=== PATIENT | female | born 1980 | race Two or more races ===

== ENCOUNTER 2017-06-06 22:29 | Emergency (ER) | payer OTHER ==
[~2017-06-06] VITALS: Ht 153 cm; Wt 74.8 kg
[~2017-06-06 22:29] MED LIST: BENADRYL25 MG PO; HYDROCODON-ACE1 EA13 ORAL; IBUPROFEN600 MG ORAL; KEFLEX500 MG ORAL; MACROBID 100 M100 MG PO; MACROBID100 MG ORAL; NORCO 5-325 TA1 EACH ORAL; PHENAZOPYRIDIN200 MG ORAL; PREDNISONE20 MG PO; UNOBMED; VALIUM5 MG ORAL
[2017-06-06] MEDS ORDERED: METFORMIN HCL500 M1 ORAL (22:39)
[2017-06-06 22:58] VITALS: BP 146/93
[2017-06-06] MEDS ORDERED: LORazepam Inj 2mg/ml 1ml IV ONE (23:00)
[2017-06-06 23:32] LABS: BILIRUBIN, URINE NEGATIVE (NEGATIVE); COLOR,URINE PALE YELLOW; EOSINOPHILS % (AUTO) 5.3 % (0.0-3.0); GLUCOSE, URINE (UA) NEGATIVE (NEGATIVE); KETONES,URINE NEGATIVE (NEGATIVE); LYMPHOCYTES % (AUTO) 37.2 % (20.0-45.0); MEAN CORPUSCULAR VOLUME 80 FL (80-99); MONOCYTES % (AUTO) 6.5 % (1.0-10.0); NITRITE,URINE NEGATIVE (NEGATIVE); PH,URINE 7 (4.5-8.0); PLATELET COUNT 327 K/UL (150-450); PROTEIN,URINE NEGATIVE (NEGATIVE); RED BLOOD COUNT 4.35 M/UL (4.20-5.40); RED CELL DISTRIBUTION WIDTH 13.3 % (11.6-14.8); UROBILINOGEN,URINE NORMAL MG/DL (0.0-1.0); WHITE BLOOD COUNT 9.3 K/UL (4.8-10.8)
[2017-06-06 23:43] LABS: ANION GAP 10 mmol/L (5-15); BLOOD UREA NITROGEN 10 mg/dL (7-18); CALCIUM 8.5 MG/DL (8.5-10.1); CARBON DIOXIDE 26 MMOL/L (21-32); CHLORIDE 104 MMOL/L (98-107); CREATININE 0.7 MG/DL (0.55-1.30); POTASSIUM 3.3 MMOL/L (3.5-5.1); SODIUM 139 MMOL/L (136-145)
[2017-06-06 23:48] LABS: ALANINE AMINOTRANSFERASE 29 U/L (12-78); ALBUMIN 3.4 G/DL (3.4-5.0); ALBUMIN/GLOBULIN RATIO 0.9 (1.0-2.7); ALKALINE PHOSPHATASE 154 U/L (46-116); APPEARANCE,URINE SLIGHTLY CLOUDY; ASPARTATE AMINO TRANSFERASE 18 U/L (15-37); BILIRUBIN,TOTAL 0.2 MG/DL (0.2-1.0); LEUKOCYTE ESTERASE ,URINE 1+ (NEGATIVE)
--- NOTE | 2017-06-07 00:18 | Emergency Room Report ---
History of Present Illness General Chief Complaint: Chest Pain Source: Patient Present Illness HPI Is a 36-year-old female with his anxiety. She woke up with chief complaint of chest pain. She fell heaviness to her left chest area. Now with numbness to her body mostly on her fingers and feet. No nausea no vomiting. No suicidal thought homicidal thought. No radiation. No dyspnea or palpitation. No other complaint. No exertional component. Allergies: Coded Allergies: No Known Allergies (Unverified , 02/25/12) Patient History Past Medical History: see triage record, old chart reviewed, psych hx - anxiety Past Surgical History: none Pertinent Family History: none Social History: Denies: smoking Last Menstrual Period: 05/02/2016 Now: No : 4 Para: 3 Immunizations: other Reviewed Nursing Documentation: PMH: Agreed; PSxH: Agreed Nursing Documentation-PMH Past Medical History: No History, Except For Hx Cardiac Problems: No Hx Hypertension: Yes Hx Pacemaker: No Hx Asthma: No Hx COPD: No Hx Diabetes: Yes - pre-diabetic Hx Cancer: No Hx Gastrointestinal Problems: No Hx Dialysis: No Hx Neurological Problems: No Hx Cerebrovascular Accident: No Hx Seizures: No Review of Systems Eye: Denies: eye pain, blurred vision ENT: Denies: ear pain, nose congestion, throat swelling Respiratory: Denies: cough, shortness of breath Cardiovascular: Reports: chest pain; Denies: palpitations Gastrointestinal: Denies: abdominal pain, diarrhea, nausea, vomiting Musculoskeletal: Denies: back pain, joint pain Skin: Denies: rash Neurological: Denies: headache, numbness Endocrine: Denies: increased thirst, increased urine Hematologic/Lymphatic: Denies: easy bruising All Other Systems: negative except mentioned in HPI Physical Exam Vital Signs Date Time Temp Pulse Resp B/P (MAP) Pulse Ox O2 Delivery O2 Flow Rate FiO2 06/06/17 22:32 98.0 83 12 183/100 97 Room Air 98.1 vitals normal except for high blood pressure Sp02 EP Interpretation: reviewed, normal General Appearance: well appearing, no apparent distress, alert Head: normocephalic, atraumatic Eyes: bilateral eye PERRL, bilateral eye EOMI ENT: hearing grossly normal, normal pharynx Neck: full range of motion, supple, no meningismus Respiratory: chest non-tender, lungs clear, normal breath sounds Cardiovascular #1: regular rate, rhythm, no murmur Gastrointestinal: normal bowel sounds, non tender, no mass, no organomegaly, no bruit, non-distended Musculoskeletal: back normal, gait/station normal, normal range of motion Neurologic: alert, oriented x3 Psychiatric: anxious Skin: warm/dry Medical Decision Making Diagnostic Impression: Primary Impression: Chest pain Qualified Codes: R07.9 - Chest pain, unspecified Additional Impression: Acute anxiety ER Course Pt presents with atypical chest pain, most likely anxiety related. She felt much better after Ativan. Blood pressures normal. No evidence of ACS, PE, dissection to name a few. We'll discharge home. Lab Results Impression labs normal EKG Diagnostic Results Rate: normal Rhythm: NSR ST Segments: no acute changes Rhythm Strip Diag. Results Rhythm Strip Time: 00:18 EP Interpretation: yes Rate: 66 Rhythm: NSR, no PVC's, no ectopy Last Vital Signs Date Time Temp Pulse Resp B/P (MAP) Pulse Ox O2 Delivery O2 Flow Rate FiO2 06/06/17 22:59 82 19 Room Air 06/06/17 22:58 98.1 146/93 99 98.1 Status: improved Disposition: HOME, SELF-CARE Condition: Stable Referrals: [facility],REFERRING (PCP) Patient Instructions: Nonspecific Chest Pain Additional Instructions: Follow-up with your DrShilpi in 7 days. Return if symptom worsen. MAGGIE WORTHINGTON M.D. Jun 07, 2017 00:18
[2017-06-07 00:35] VITALS: BP 146/93
--- NOTE | 2017-06-07 12:43 | Diagnostic Imaging Report ---
Indication: Reason For Exam: CP Technique: One view of the chest Comparison: none Findings: Lungs and pleural spaces are clear. Heart size is normal Impression: No acute process
--- NOTE | 2017-06-07 16:23 | Cardiology Report ---
APPROVED REPORT EKG Measurement Heart [id number] Normal sinus rhythm Normal ECG
== END 2017-06-07 00:35 | disposition home or self-care (01) ==
LOC: EMR 22:59
DX: R07.9 Chest pain, unspecified (principal); I10 Essential (primary) hypertension; F41.9 Anxiety disorder, unspecified
CPT/HCPCS: 36415; 71045; 80053; 81003; 82962; 84484; 85025; 93005; 96374; 99284

== ENCOUNTER 2017-10-20 12:41 | Emergency (ER) | payer OTHER ==
[~2017-10-20] VITALS: Ht 157.5 cm; Wt 66.7 kg
[~2017-10-20 12:41] MED LIST changes: +METFORMIN HCL500 M1 ORAL
[2017-10-20 13:35] VITALS: BP 147/98
[2017-10-20] MEDS ORDERED: TYLENOL EXTRA500 MG ORAL (13:53)
--- NOTE | 2017-10-20 13:54 | Emergency Room Report ---
History of Present Illness General Chief Complaint: Pain Source: Patient Present Illness HPI 37-year-old female patient presents ER complaining of bump on right side of neck. reports painful to touch, pain with movement of neck. Denies No job, states that she's been able to eat during this time. Denies tooth pain, no sore throat, states that she saw dentist last week. denies recent injury or illness. denies fever, chest pain, SOB, ear pain. states she is Not on blood thinners, denies hx of stroke or TIA. Allergies: Coded Allergies: No Known Allergies (Unverified , 02/25/12) Patient History Past Medical History: see triage record Last Menstrual Period: 09/10/2017 Now: No Reviewed Nursing Documentation: PMH: Agreed; PSxH: Agreed Nursing Documentation-PMH Hx Cardiac Problems: No Hx Hypertension: Yes Hx Pacemaker: No Hx Asthma: No Hx COPD: No Hx Diabetes: Yes Hx Cancer: No Hx Gastrointestinal Problems: No Hx Dialysis: No Hx Neurological Problems: No Hx Cerebrovascular Accident: No Hx Seizures: No Review of Systems All Other Systems: negative except mentioned in HPI Physical Exam Vital Signs Date Time Temp Pulse Resp B/P (MAP) Pulse Ox O2 Delivery O2 Flow Rate FiO2 10/20/17 13:08 98.4 78 14 159/106 97 Room Air 98.4 Sp02 EP Interpretation: reviewed, normal General Appearance: well appearing, no apparent distress, alert, GCS 15, non- toxic Head: normocephalic, atraumatic Eyes: bilateral eye normal inspection, bilateral eye PERRL ENT: hearing grossly normal, normal pharynx, no angioedema, normal voice, TMs + canals normal, uvula midline, moist mucus membranes, other - multiple fillings noted, no tenderness to palpation, teeth, no erythema or edema, no abscess and oral cavity Neck: full range of motion, no meningismus, no bony tend Respiratory: lungs clear, normal breath sounds, no rhonchi, no respiratory distress, no accessory muscle use, no wheezing, speaking full sentences Cardiovascular #1: regular rate, rhythm, no edema Neurologic: alert, oriented x3, responsive, rrt III-XII nml as tested, motor strength/tone normal, sensory intact, cerebellar normal, normal gait, speech normal Psychiatric: mood/affect normal Skin: no rash Lymphatic: adenopathy - right cervical Medical Decision Making PA Attestation Dr. Nolasco is my supervising Physician whom patient management has been discussed with. Diagnostic Impression: Primary Impression: Swelling of lymph node ER Course Pt. presents to the ED c/o "bump" on right side of her neck causing pain. Ddx considered but are not limited to lymphadenopathy, URI, pharyngitis, tonsillitis, otitis media, otitis externa, malignancy, cysts, cellulitis, abscess. Vital signs: are WNL, pt. is afebrile, blood pressure mildly elevated. patient denies chest pain, shortness of breath, headache. Blood pressure mildly elevated at this time, will continue to monitor. Denies chest pain, shortness of breath, vision changes, does not require acute intervention at ER at this time. Follow with primary care provider discuss further treatment and referral. Advised on low-sodium diet, advised on diet and exercise. ER COURSE: patient was seen by dentist last week, no infection at that time, did not require treatment with antibiotics at that time. Physical exam Shows swollen right sided cervical lymph node, tender to palpation , no erythema or edema, low suspicion for abscess. due to tenderness, low suspicion for malignancy at this time, informed patient to follow-up with primary care if lymph node persists longer than 2 weeks may require biopsy and treatment, does not require antibiotic treatment at this time.. Informed patient that it was not painful, greater concern for malignancy. No pharyngeal erythema or edema, no tonsillar exudates, bilateral TMs normal, patient is afebrile, chest clear to auscultation. No uvular deviation, no stridor, no drooling or hot potato voice, low suspicion for peritonsillar abscess. patient seen and evaluated by Dr. Nolasco, increased assessment and treatment plan. instructed patient to take Tylenol for pain symptoms. DISCHARGE: Rx provided for Tylenol At this time pt is stable for d/c to home. Patient is resting comfortably, in no acute distress, nontoxic appearing, talking without difficulty. Patient to take medications as instructed Will provide with patient care instructions and any necessary prescriptions. Care plan and follow-up instructions provided. Patient instructed to follow-up with primary care provider in 3 - 5 days. Patient questions asked and answered. Patient reports understanding and agreement to treatment plan. ER precautions given. Patient instructed to return to ER immediately for any new or worsening of symptoms including but not limited to increasing SOB, persistent fever, chest pain, intractable vomiting. - Please note that this Emergency Department Report was dictated using [employer] technology software, occasionally this can lead to erroneous entry secondary to interpretation by the dictation equipment. Last Vital Signs Date Time Temp Pulse Resp B/P (MAP) Pulse Ox O2 Delivery O2 Flow Rate FiO2 10/20/17 13:08 98.4 78 14 159/106 97 Room Air 98.4 Disposition: HOME, SELF-CARE Condition: Stable Scripts Acetaminophen* (TYLENOL EXTRA STRENGTH*) 500 Mg Tablet 500 MG ORAL Q8H PRN for Prn Headache/Temp > 101, #30 TAB 0 Refills Prov: Eduardo Abbott 10/20/17 Patient Instructions: Lymphadenopathy Additional Instructions: Followup with primary care provider in 3 -5 days. Take medications as directed. Take Tylenol for pain. Apply ice to help with swelling symptoms. Patient questions asked and answered. ER precautions given, patient instructed to return to ER immediately for any new or worsening of symptoms. Eduardo Abbott Oct 20, 2017 13:54
[2017-10-20 14:20] VITALS: BP 147/98
== END 2017-10-20 14:20 | disposition home or self-care (01) ==
LOC: EMR 13:42
DX: R59.0 Localized enlarged lymph nodes (principal); I10 Essential (primary) hypertension; E11.9 Type 2 diabetes mellitus without complications
CPT/HCPCS: 99283

== ENCOUNTER 2018-03-20 16:20 | Emergency (ER) | payer SELFPAY ==
[~2018-03-20] VITALS: Ht 154.9 cm; Wt 72.6 kg
[~2018-03-20 16:20] MED LIST changes: +TYLENOL EXTRA500 MG ORAL
--- NOTE | 2018-03-20 16:39 | NUR ---
ED Nurse Note: Pt came into the Er w/ complaints of abdominal pain x 2 days. Rating the pain an 8/10. Non radiating. Denies diarrhea or nausea. Pt states that she has had 2 episodes of clear vomit. A + O x4. Ambulatory. Skin warm to touch.
[2018-03-20 16:41] VITALS: BP 164/104
--- NOTE | 2018-03-20 16:46 | Emergency Room Report ---
History of Present Illness General Chief Complaint: Abdominal Pain Source: Patient, Medical Record Present Illness HPI This is a very pleasant 37-year-old female complains of severe epigastric abdominal pain that radiates to the right upper quadrant. She also complains of vomiting as well. It started about 2 days ago gradual onset and got progressively worse. Constant pain. She describes it as dull pain. No exacerbating or alleviating factor. Allergies: Coded Allergies: No Known Allergies (Unverified , 02/25/12) Patient History Past Surgical History: none Pertinent Family History: none, other - sister has gallbladder disease Last Menstrual Period: 02/01/18 Nursing Documentation-[facility] Past Medical History: No History, Except For Hx Cardiac Problems: No Hx Hypertension: Yes Hx Pacemaker: No Hx Asthma: No Hx COPD: No Hx Diabetes: Yes - hx of kidney stone Hx Cancer: No Hx Gastrointestinal Problems: No Hx Dialysis: No Hx Neurological Problems: No Hx Cerebrovascular Accident: No Hx Seizures: No Review of Systems All Other Systems: negative except mentioned in HPI Physical Exam Vital Signs Date Time Temp Pulse Resp B/P (MAP) Pulse Ox O2 Delivery O2 Flow Rate FiO2 03/20/18 16:27 98.8 93 16 169/90 97 Room Air 03/20/18 16:41 100 General Appearance: well appearing, no apparent distress Head: normocephalic, atraumatic ENT: hearing grossly normal, normal voice Respiratory: normal breath sounds, no respiratory distress, speaking full sentences Gastrointestinal: normal inspection, soft, no peritonitis, other - ru Musculoskeletal: normal inspection Neurologic: normal inspection, alert, oriented x3, responsive Skin: no rash Medical Decision Making Reaction to Intervention: Improved Diagnostic Impression: Primary Impression: Abdominal pain ER Course Patient presents significant complexity of risk requiring multiple bedside evaluations. Patient is nontoxic-appearing. The patient was given IV morphine for pain. I also considered cholangitis, pancreatitis, ectopic , kidney stone, abdominal aortic aneurysm, atypical acute coronary syndrome. The patient has no chest pain. The patient is alert. Laboratory Tests Test 03/20/18 16:38 03/20/18 16:50 Urine Color Pale yellow Urine Appearance Clear Urine pH 6.5 (4.5-8.0) Urine Specific Moody 1.010 (1.005-1.035) Urine Protein Negative (NEGATIVE) Urine Glucose (UA) Negative (NEGATIVE) Urine Ketones 1+ (NEGATIVE) H Urine Blood Negative (NEGATIVE) Urine Nitrite Negative (NEGATIVE) Urine Bilirubin Negative (NEGATIVE) Urine Urobilinogen Normal MG/DL (0.0-1.0) Urine Leukocyte Esterase 1+ (NEGATIVE) H Urine RBC 0-2 /HPF (0 - 2) Urine WBC 2-4 /HPF (0 - 2) Urine Squamous Epithelial Cells Few /LPF (NONE/OCC) Urine Bacteria Few /HPF (NONE) White Blood Count 10.2 K/UL (4.8-10.8) Red Blood Count 4.54 M/UL (4.20-5.40) Hemoglobin 12.3 G/DL (12.0-16.0) Hematocrit 37.1 % (37.0-47.0) Mean Corpuscular Volume 82 FL (80-99) Mean Corpuscular Hemoglobin 27.0 PG (27.0-31.0) Mean Corpuscular Hemoglobin Concent 33.1 G/DL (32.0-36.0) Red Cell Distribution Width 13.8 % (11.6-14.8) Platelet Count 273 K/UL (150-450) Mean Platelet Volume 8.3 FL (6.5-10.1) Neutrophils (%) (Auto) 63.0 % (45.0-75.0) Lymphocytes (%) (Auto) 27.3 % (20.0-45.0) Monocytes (%) (Auto) 5.4 % (1.0-10.0) Eosinophils (%) (Auto) 3.4 % (0.0-3.0) H Basophils (%) (Auto) 1.0 % (0.0-2.0) Sodium Level 140 MMOL/L (136-145) Potassium Level 3.2 MMOL/L (3.5-5.1) L Chloride Level 103 MMOL/L (98-107) Carbon Dioxide Level 27 MMOL/L (21-32) Anion Gap 10 mmol/L (5-15) Blood Urea Nitrogen 3 mg/dL (7-18) L Creatinine 0.7 MG/DL (0.55-1.30) Estimate Glomerular Filtration Rate > 60 mL/min (>60) Glucose Level 145 MG/DL (74-106) H Calcium Level 9.4 MG/DL (8.5-10.1) Total Bilirubin 0.4 MG/DL (0.2-1.0) Aspartate Amino Transferase (AST) 16 U/L (15-37) Alanine Aminotransferase (ALT) 27 U/L (12-78) Alkaline Phosphatase 110 U/L (46-116) Total Protein 7.3 G/DL (6.4-8.2) Albumin 3.8 G/DL (3.4-5.0) Globulin 3.5 g/dL Albumin/Globulin Ratio 1.1 (1.0-2.7) Lipase 101 U/L (73-393) Human Chorionic Gonadotropin, Quant < 1 mIU/mL (1-6) L Last Vital Signs Date Time Temp Pulse Resp B/P (MAP) Pulse Ox O2 Delivery O2 Flow Rate FiO2 03/20/18 16:41 83 19 Room Air 100 03/20/18 16:27 98.8 169/90 97 Status: improved Disposition: HOME, SELF-CARE Condition: Improved Scripts Omeprazole (OMEPRAZOLE) 40 Mg Capsule.dr 40 MG ORAL DAILY for 10 Days, #10 CAP Prov: JACOB ALEJANDRO 03/20/18 Ondansetron (Zofran) 4 Mg Tablet 4 MG ORAL Q6H PRN for Nausea & Vomiting for 7 Days, #10 TAB 0 Refills Prov: JACOB ALEJANDRO 03/20/18 Tramadol HCl (Tramadol HCl ER) 150 Mg Cpbp.25.75 50 MG ORAL QID PRN for For Pain for 7 Days, #20 CAP Prov: JACOB ALEJANDRO 03/20/18 Patient Instructions: Abdominal Pain, Adult JACOB ALEJANDRO Mar 20, 2018 16:46
--- NOTE | 2018-03-20 16:59 | NUR ---
ED Nurse Note: Blood and urine has been collected and sent to lab. Awaiting results.
[2018-03-20] MEDS ORDERED: Morphine Sulfate 4mg/ml Inj (IV USE ONLY) IVP ONE (17:00)
--- NOTE | 2018-03-20 17:02 | NUR ---
ED Nurse Note: Tried calling US to notify about the US orders. No answer. Will try again later.
[2018-03-20 17:29] LABS: ANION GAP 10 mmol/L (5-15); BLOOD UREA NITROGEN 3 mg/dL (7-18); CALCIUM 9.4 MG/DL (8.5-10.1); CARBON DIOXIDE 27 MMOL/L (21-32); CHLORIDE 103 MMOL/L (98-107); CREATININE 0.7 MG/DL (0.55-1.30); EOSINOPHILS % (AUTO) 3.4 % (0.0-3.0); HEMATOCRIT 37.1 % (37.0-47.0); HEMOGLOBIN 12.3 G/DL (12.0-16.0); LYMPHOCYTES % (AUTO) 27.3 % (20.0-45.0); MEAN CORPUSCULAR VOLUME 82 FL (80-99); MONOCYTES % (AUTO) 5.4 % (1.0-10.0); PLATELET COUNT 273 K/UL (150-450); POTASSIUM 3.2 MMOL/L (3.5-5.1); RED BLOOD COUNT 4.54 M/UL (4.20-5.40); RED CELL DISTRIBUTION WIDTH 13.8 % (11.6-14.8); SODIUM 140 MMOL/L (136-145); WHITE BLOOD COUNT 10.2 K/UL (4.8-10.8)
[2018-03-20 17:29] LABS: APPEARANCE,URINE CLEAR; BILIRUBIN, URINE NEGATIVE (NEGATIVE); COLOR,URINE PALE YELLOW; GLUCOSE, URINE (UA) NEGATIVE (NEGATIVE); KETONES,URINE 1+ (NEGATIVE); LEUKOCYTE ESTERASE ,URINE 1+ (NEGATIVE); NITRITE,URINE NEGATIVE (NEGATIVE); PH,URINE 6.5 (4.5-8.0); PROTEIN,URINE NEGATIVE (NEGATIVE); UROBILINOGEN,URINE NORMAL MG/DL (0.0-1.0)
[2018-03-20 17:34] LABS: ALANINE AMINOTRANSFERASE 27 U/L (12-78); ALBUMIN 3.8 G/DL (3.4-5.0); ALBUMIN/GLOBULIN RATIO 1.1 (1.0-2.7); ALKALINE PHOSPHATASE 110 U/L (46-116); ASPARTATE AMINO TRANSFERASE 16 U/L (15-37); BILIRUBIN,TOTAL 0.4 MG/DL (0.2-1.0)
--- NOTE | 2018-03-20 17:48 | NUR ---
ED Nurse Note: US at the bedside.
[2018-03-20] MEDS ORDERED: TRAMADOL HCL150 MG ORAL (18:40)
[2018-03-20] MEDS ORDERED: OMEPRAZOLE40 M1 ORAL (18:40)
[2018-03-20] MEDS ORDERED: ZOFRAN4 MG ORAL (18:40)
[2018-03-20 18:54] VITALS: BP 158/95
--- NOTE | 2018-03-20 18:55 | NUR ---
ED Nurse Note: Discharge instructions given to pt. Answered all questions. Verbalized understanding. No acute distress noted. ID band and IV site removed. Left ER w/ steady gait and all belongings.
--- NOTE | 2018-03-21 10:25 | Diagnostic Imaging Report ---
Indication: Abdominal pain Technique: Roper-scale and duplex images of the upper abdomen were obtained Comparison: None. Reference made to abdomen pelvis CT dated 10/31/2015 Findings: Gallbladder is unremarkable, without stones, wall thickening, nor pericholecystic fluid. Sonographic Wang's sign is negative. Common bile duct measures 2 mm in diameter. No intrahepatic biliary ductal dilatation. Liver demonstrates diffusely increased echogenicity, consistent with diffuse hepatocellular disease, most likely fatty change. Portal vein and hepatic veins are patent. Pancreas is unremarkable. Spleen is unremarkable. Left kidney measures 12.9 cm in length. Right kidney measures 11.5 cm length. Both kidneys demonstrate normal echogenicity. There is no hydronephrosis. No focal abnormality . Unremarkable inferior vena cava. Non-aneurysmal abdominal aorta . Impression: Negative for gallstones or dilated ducts Liver demonstrates diffusely increased echogenicity, consistent with diffuse hepatocellular disease, most likely fatty change. This agrees with the preliminary interpretation provided by the emergency room physician
== END 2018-03-20 19:00 | disposition home or self-care (01) ==
LOC: EMR 17:27
DX: R10.13 Epigastric pain (principal); I10 Essential (primary) hypertension; Z87.442 Personal history of urinary calculi
CPT/HCPCS: 36415; 76700; 80053; 81003; 83690; 84702; 85025; 96361; 96374; 96375; 99284; J2270; J2405

== ENCOUNTER 2018-07-15 08:57 | Emergency (ER) | payer SELFPAY ==
[~2018-07-15] VITALS: Ht 154.9 cm; Wt 72.6 kg
[~2018-07-15 08:57] MED LIST changes: +OMEPRAZOLE40 M1 ORAL; +TRAMADOL HCL150 MG ORAL; +ZOFRAN4 MG ORAL
[2018-07-15] MEDS ORDERED: METOPROLOL TART25 MG ORAL (09:04)
--- NOTE | 2018-07-15 09:19 | NUR ---
ED Nurse Note: Patient walked in to ER c/o chest pain 09/06. pt aao x4 and ambulatory. calm and cooperative. skin clean and intact. However, palm sized bruises noted on both inner thigh which pt denied any injury or trauma. per pt, she has been getting bruises all over her body without bumping in to anywhere. pt denied taking blood thinner including Aspirin. ERMD notified about bruises too.
[2018-07-15 09:20] VITALS: BP 169/103
--- NOTE | 2018-07-15 09:21 | Emergency Room Report ---
History of Present Illness General Chief Complaint: Abdominal Pain Source: Patient Present Illness HPI Patient presents with 2 weeks of epigastric pain. It's intermittent. She's tried taking Tylenol but this hasn't helped. The pain is rated 8/10. She reports more pressure. She had some loose stools initially that she characterizes diarrhea. They were light brown in color. Is no blood. She's vomited but feels nauseated. The patient has frequent bloating with gassiness. This feels different. She also complains about bruising. She denies any trauma to her legs. There were more painful initially. They're on the inner thighs and also on her arms. The patient is also diabetic on metformin. Her sugars have been high. 2 days ago it was 214. She feels dehydrated but doesn't complain of polyuria polydipsia. The patient is also hypertensive. She's taking medication at this time. She denies headache. Her last period was normal for her on July 02. She denies dysuria. The patient also has a history of anxiety and is treated with lorazepam. History of renal stone in the past. 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 Reviewed Nursing Documentation: PMH: Agreed; PSxH: Agreed Nursing Documentation-PMH Hx Cardiac Problems: No Hx Hypertension: Yes Hx Pacemaker: No Hx Asthma: No Hx COPD: No Hx Diabetes: Yes - hx of kidney stone Hx Cancer: No Hx Gastrointestinal Problems: No Hx Dialysis: No Hx Neurological Problems: No Hx Cerebrovascular Accident: No Hx Seizures: No Review of Systems All Other Systems: negative except mentioned in HPI Physical Exam Vital Signs Date Time Temp Pulse Resp B/P (MAP) Pulse Ox O2 Delivery O2 Flow Rate FiO2 07/15/18 09:00 98.1 90 22 99 Room Air Sp02 EP Interpretation: reviewed, normal General Appearance: well appearing, no apparent distress, GCS 15 Head: normocephalic, atraumatic Eyes: bilateral eye normal inspection, bilateral eye PERRL ENT: moist mucus membranes Neck: supple Respiratory: lungs clear, normal breath sounds Cardiovascular #1: regular rate, rhythm Cardiovascular #2: 2+ radial (R) Gastrointestinal: normal inspection, normal bowel sounds, no mass, non- distended, no guarding, no rebound, tenderness - Epigastric Genitourinary: no CVA tenderness Musculoskeletal: back normal, gait/station normal, normal range of motion Neurologic: alert, oriented x3, grossly normal Psychiatric: mood/affect normal Skin: warm/dry, other - Violaceous macules inner thighs and also left inner arm slightly raised. In addition there are petechial bowen where the blood pressure cuff was. Medical Decision Making Diagnostic Impression: Primary Impression: Epigastric abdominal pain Additional Impressions: Diabetes Qualified Codes: E11.9 - Type 2 diabetes mellitus without complications Rash and nonspecific skin eruption ER Course Patient presents with epigastric pain and a rash with history of diabetes and hypertension. Differential includes gastritis, peptic ulcer disease, pancreatitis, gallbladder disease amongst others. Regarding the rash this appears slightly purpuric however she also has petechiae -vasculitis, palpable purpura, renal failure need to be excluded. The lesions do not appear infected. The exam is more consistent with gastritis and gallbladder disease. The patient will be evaluated with x-rays and labs including sedimentation rate. The patient will receive IV hydration and repeat blood sugars will be obtained. The patient will be treated with Pepcid and Mylanta and lidocaine. Increased pain. Morphine ordered. WBC normal. Glucose good. Potassium low. Films unremarkable. Because of pain, ultrasound ordered and morphine repeated. Potassium given orally. Ultrasound with fatty liver. Discussed findings with patient. Pain is improved. Feels pain only when she presses on her epigastric area. Discussed outpatient observation with patient. She is advised to return if the pain increases, vomiting or fevers. Patient stable for outpatient observation and treatment. Laboratory Tests Test 07/15/18 09:38 07/15/18 10:05 White Blood Count 8.5 K/UL (4.8-10.8) Red Blood Count 4.68 M/UL (4.20-5.40) Hemoglobin 11.8 G/DL (12.0-16.0) L Hematocrit 37.1 % (37.0-47.0) Mean Corpuscular Volume 79 FL (80-99) L Mean Corpuscular Hemoglobin 25.2 PG (27.0-31.0) L Mean Corpuscular Hemoglobin Concent 31.8 G/DL (32.0-36.0) L Red Cell Distribution Width 15.1 % (11.6-14.8) H Platelet Count 354 K/UL (150-450) Mean Platelet Volume 7.6 FL (6.5-10.1) Neutrophils (%) (Auto) 56.1 % (45.0-75.0) Lymphocytes (%) (Auto) 35.2 % (20.0-45.0) Monocytes (%) (Auto) 5.2 % (1.0-10.0) Eosinophils (%) (Auto) 2.5 % (0.0-3.0) Basophils (%) (Auto) 1.0 % (0.0-2.0) Prothrombin Time 10.5 SEC (9.30-11.50) Prothrombin Time INR 1.0 (0.9-1.1) PTT 26 SEC (23-33) Urine Color Pale yellow Urine Appearance Slightly cloudy Urine pH 6.5 (4.5-8.0) Urine Specific [place] 1.015 (1.005-1.035) Urine Protein Negative (NEGATIVE) Urine Glucose (UA) Negative (NEGATIVE) Urine Ketones Negative (NEGATIVE) Urine Blood Negative (NEGATIVE) Urine Nitrite Negative (NEGATIVE) Urine Bilirubin Negative (NEGATIVE) Urine Urobilinogen Normal MG/DL (0.0-1.0) Urine Leukocyte Esterase Negative (NEGATIVE) Urine RBC 0 /HPF (0 - 2) Urine WBC 0-2 /HPF (0 - 2) Urine Squamous Epithelial Cells Moderate /LPF (NONE/OCC) H Urine Amorphous Sediment Moderate /LPF (NONE) H Urine Bacteria Occasional /HPF (NONE) Urine HCG, Qualitative Negative (NEGATIVE) Sodium Level 140 MMOL/L (136-145) Potassium Level 3.1 MMOL/L (3.5-5.1) L Chloride Level 104 MMOL/L (98-107) Carbon Dioxide Level 24 MMOL/L (21-32) Anion Gap 12 mmol/L (5-15) Blood Urea Nitrogen 9 mg/dL (7-18) Creatinine 0.8 MG/DL (0.55-1.30) Estimate Glomerular Filtration Rate > 60 mL/min (>60) Glucose Level 127 MG/DL (74-106) H Calcium Level 9.0 MG/DL (8.5-10.1) Total Bilirubin 0.3 MG/DL (0.2-1.0) Aspartate Amino Transferase (AST) 17 U/L (15-37) Alanine Aminotransferase (ALT) 26 U/L (12-78) Alkaline Phosphatase 127 U/L (46-116) H Total Protein 7.2 G/DL (6.4-8.2) Albumin 3.5 G/DL (3.4-5.0) Globulin 3.7 g/dL Albumin/Globulin Ratio 0.9 (1.0-2.7) L Lipase 128 U/L (73-393) Erythrocyte Sedimentation Rate 10 MM/HR (0-20) Rhythm Strip Diag. Results EP Interpretation: yes Rhythm: NSR, no PVC's, no ectopy Chest X-Ray Diagnostic Results Chest X-Ray Diagnostic Results : Chest X-Ray Ordered: Yes # of Views/Limited/Complete: 1 View Indication: Other EP Interpretation: Yes Interpretation: no consolidation, no effusion, no pneumothorax Impression: No acute disease Electronically Signed by: Electronically signed by Charly Steward MD Other X-Ray Diagnostic Results Other X-Ray Diagnostic Results : X-Ray ordered: abd # of Views/Limited Vs Complete: 2 View Indication: Pain EP Interpretation: Yes Interpretation: nonspecific bowel gas, no sbo, other - No masses Impression: Other Electronically Signed by: Electronically signed by Charly Steward MD CT/MRI/US Diagnostic Results CT/MRI/US Diagnostic Results : Imaging Test Ordered: Ultrasound abdomen Impression Fatty liver Last Vital Signs Date Time Temp Pulse Resp B/P (MAP) Pulse Ox O2 Delivery O2 Flow Rate FiO2 07/15/18 14:02 98.1 97 16 151/95 100 Room Air Status: improved Disposition: HOME, SELF-CARE Condition: Improved Scripts Acetaminophen (Tylenol) 325 Mg Tablet 650 MG ORAL Q6H PRN for Prn Pain/Headache/Temp > 101, #20 TAB 0 Refills Prov: Charly Steward MD 07/15/18 Mag Hydrox/Al Hydrox/Simeth (MAALOX MAXIMUM STRENGTH SUSP) 355 Ml Oral.susp 30 ML PO Q6HR, #240 ML Prov: Charly Steward MD 07/15/18 Tramadol Hcl* (ULTRAM*) 50 Mg Tablet 50 MG ORAL Q6H PRN for For Pain, #10 TAB 0 Refills Prov: Charly Steward MD 07/15/18 Famotidine (PEPCID AC) 20 Mg Tablet 20 MG PO DAILY, #20 TAB Prov: Charly Steward MD 07/15/18 Referrals: NOT CHOSEN IPA/,REFERRING (PCP) Charly Steward MD July 15, 2018 09:20
[2018-07-15] MEDS ORDERED: Lidocaine 2% Visc 15ml soln ORAL ONE (09:30)
[2018-07-15] MEDS ORDERED: Mylanta II UD 30ml ORAL ONE (09:30)
[2018-07-15 09:45] LABS: APPEARANCE,URINE SLIGHTLY CLOUDY; BILIRUBIN, URINE NEGATIVE (NEGATIVE); COLOR,URINE PALE YELLOW; EOSINOPHILS % (AUTO) 2.5 % (0.0-3.0); GLUCOSE, URINE (UA) NEGATIVE (NEGATIVE); HEMATOCRIT 37.1 % (37.0-47.0); HEMOGLOBIN 11.8 G/DL (12.0-16.0); KETONES,URINE NEGATIVE (NEGATIVE); LEUKOCYTE ESTERASE ,URINE NEGATIVE (NEGATIVE); LYMPHOCYTES % (AUTO) 35.2 % (20.0-45.0); MEAN CORPUSCULAR VOLUME 79 FL (80-99); MONOCYTES % (AUTO) 5.2 % (1.0-10.0); NEUTROPHILS % (AUTO) 56.1 % (45.0-75.0); NITRITE,URINE NEGATIVE (NEGATIVE); PH,URINE 6.5 (4.5-8.0); PLATELET COUNT 354 K/UL (150-450); PROTEIN,URINE NEGATIVE (NEGATIVE); RED BLOOD COUNT 4.68 M/UL (4.20-5.40); RED CELL DISTRIBUTION WIDTH 15.1 % (11.6-14.8); UROBILINOGEN,URINE NORMAL MG/DL (0.0-1.0); WHITE BLOOD COUNT 8.5 K/UL (4.8-10.8)
[2018-07-15 09:59] LABS: ANION GAP 12 mmol/L (5-15); BLOOD UREA NITROGEN 9 mg/dL (7-18); CARBON DIOXIDE 24 MMOL/L (21-32); CHLORIDE 104 MMOL/L (98-107); CREATININE 0.8 MG/DL (0.55-1.30); POTASSIUM 3.1 MMOL/L (3.5-5.1); SODIUM 140 MMOL/L (136-145)
[2018-07-15 10:00] VITALS: BP 149/93
[2018-07-15 10:03] LABS: ALANINE AMINOTRANSFERASE 26 U/L (12-78); ALBUMIN 3.5 G/DL (3.4-5.0); ALBUMIN/GLOBULIN RATIO 0.9 (1.0-2.7); ALKALINE PHOSPHATASE 127 U/L (46-116); ASPARTATE AMINO TRANSFERASE 17 U/L (15-37); BILIRUBIN,TOTAL 0.3 MG/DL (0.2-1.0)
[2018-07-15] MEDS ORDERED: Morphine Sulfate 4mg/ml Inj (IV USE ONLY) IVP ONE ×2 (10:30→11:45)
--- NOTE | 2018-07-15 10:49 | Diagnostic Imaging Report ---
Indication: Chest and abdominal pain Comparison: 06/06/2017 A single view chest radiograph was obtained. Findings: Cardiomediastinal appearance is within normal limits for age. The lungs are clear. Pulmonary vascularity is appropriate. The diaphragmatic contour is smooth and costophrenic angles are sharp. No pleural effusions are identified. The bones are unremarkable. Impression: No acute findings
--- NOTE | 2018-07-15 10:51 | Diagnostic Imaging Report ---
Indication: Abdominal pain Comparison: None Single view of the abdomen obtained Findings: Bowel gas pattern is nonspecific. No mass, ectopic calcifications, or abnormal gas collections are identified. The bones are unremarkable. Impression: No acute findings
--- NOTE | 2018-07-15 12:20 | NUR ---
ED Nurse Note: Patient went down for US in stable condition.
--- NOTE | 2018-07-15 13:16 | NUR ---
ED Nurse Note: pt came back from US in stable condition.
[2018-07-15] MEDS ORDERED: MAALOX MAXIMUM355 M1 PO (13:42)
[2018-07-15] MEDS ORDERED: PEPCID AC20 M2 PO (13:42)
[2018-07-15] MEDS ORDERED: TYLENOL325 MG ORAL (13:42)
[2018-07-15] MEDS ORDERED: TRAMADOL HCL50 MG ORAL (13:42)
[2018-07-15] MEDS ORDERED: oxyCODONE HCL/Acetaminophen 5/325mg ORAL ONE (13:45)
[2018-07-15 14:02] VITALS: BP 151/95
--- NOTE | 2018-07-15 14:03 | NUR ---
ER DISCHARGE NOTE: Patient is cleared to be discharged per ERMD, pt is aox4, on room air, with stable vital signs. pt was given dc and prescription instructions, patient was provided a copy of lab results, pt was able to verbalize understanding, pt id band and iv site removed without complications. pt is able to ambulate with steady gait. pt took all belongings.
--- NOTE | 2018-07-16 10:19 | Diagnostic Imaging Report ---
Indication:Abdominal pain Technique: Grayscale and duplex Doppler imaging of the abdomen performed. Comparison: None Findings: The liver is echogenic consistent with fatty infiltration the CBD is 3.3 mm.. The gallbladder is unremarkable. The demonstrated part of the pancreas, aorta and IVC show no abnormalities. Both kidneys appear mildly hydronephrotic slightly worse on the left. Consider CT for further evaluation. Small nonshadowing mass noted within the left kidney in the lower pole measuring about 5 mm. This is probably a angiomyolipoma. The spleen is normal in size. There is no biliary ductal dilatation identified. Doppler evaluation of the main portal vein shows patency. There is no ascites. Impression: Bilateral hydronephrosis slightly worse on the left. Consider CT for further evaluation. Fatty liver. 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
== END 2018-07-15 14:05 | disposition home or self-care (01) ==
LOC: EMR 09:10
DX: R10.13 Epigastric pain (principal); E11.9 Type 2 diabetes mellitus without complications; R21 Rash and other nonspecific skin eruption; I10 Essential (primary) hypertension; S70.12XA Contusion of left thigh, initial encounter; S70.11XA Contusion of right thigh, initial encounter; S40.022A Contusion of left upper arm, initial encounter; X58.XXXA Exposure to other specified factors, initial encounter; Y93.9 Activity, unspecified; Z79.84 Long term (current) use of oral hypoglycemic drugs; Z79.899 Other long term (current) drug therapy; F41.9 Anxiety disorder, unspecified; Z87.442 Personal history of urinary calculi
CPT/HCPCS: 36415; 71045; 74018; 76700; 80053; 81003; 81025; 83690; 85025; 85610; 85651; 85730; 96361; 96374; 96375; 96376; 99284; J2270; J2405; S0028; J8499

== ENCOUNTER 2018-11-13 16:41 | Emergency (ER) | payer MEDICAID ==
[~2018-11-13] VITALS: Ht 152.4 cm; Wt 72.6 kg
[2018-11-13] VITALS (8 sets, daily range): BP systolic 133–187; BP diastolic 71–118
[~2018-11-13 16:41] MED LIST changes: +MAALOX MAXIMUM355 M1 PO; +METOPROLOL TART25 MG ORAL; +PEPCID AC20 M2 PO; +TRAMADOL HCL50 MG ORAL; +TYLENOL325 MG ORAL
--- NOTE | 2018-11-13 16:52 | NUR ---
ED Nurse Note: Pt came in from home due to L sided face and L sided arm sharp pain, dizziness x "3-4 days". Pain 10/10 efrain. Pt suspected symptoms to be meningitis because she experienced the same symptoms 8 years ago and was diagnosed with it. No speech deformity noted. BP 186/120, Oral temp 97.7F upon arrival. monitoring tech attached. Will cont to monitor.
--- NOTE | 2018-11-13 17:14 | Emergency Room Report ---
History of Present Illness General Chief Complaint: Pain Source: Patient Present Illness HPI Patient is a 38-year-old female presents after increased headache as well as left-sided arm and leg numbness. Patient reports having severe pain. She reports having hypertension in the past. She denies any recent trauma. She reports having some discomfort to the left arm and left lower extremity. She denies any visual changes. Patient presented for worsening discomfort.She reports having a worsening headache over the past 4 days. Allergies: Coded Allergies: No Known Allergies (Unverified , 02/25/12) Patient History Past Medical History: see triage record Last Menstrual Period: 9- Now: No Reviewed Nursing Documentation: PMH: Agreed; PSxH: Agreed Nursing Documentation-PMH Past Medical History: No History, Except For Hx Cardiac Problems: No Hx Hypertension: Yes Hx Pacemaker: No Hx Asthma: No Hx COPD: No Hx Diabetes: Yes - hx of kidney stone Hx Cancer: No Hx Gastrointestinal Problems: No Hx Dialysis: No Hx Neurological Problems: No - meningitis Hx Cerebrovascular Accident: No Hx Seizures: No Review of Systems All Other Systems: negative except mentioned in HPI Physical Exam Vital Signs Date Time Temp Pulse Resp B/P (MAP) Pulse Ox O2 Delivery O2 Flow Rate FiO2 11/13/18 16:49 97.7 78 18 165/102 (123) 100 Room Air Sp02 EP Interpretation: reviewed, normal General Appearance: normal inspection, well appearing, no apparent distress, alert, GCS 15 Head: atraumatic ENT: normal ENT inspection, hearing grossly normal, normal voice Neck: normal inspection, full range of motion, supple, no bony tend Respiratory: normal inspection, lungs clear, normal breath sounds, no respiratory distress, no retraction, no wheezing Cardiovascular #1: normal peripheral pulses, regular rate, rhythm, no edema Gastrointestinal: normal inspection, normal bowel sounds, non tender, soft, no guarding, no hernia Genitourinary: no CVA tenderness Musculoskeletal: normal inspection, back normal, normal range of motion Neurologic: normal inspection, alert, oriented x3, responsive, capsule inspector III-XII nml as tested, speech normal, other - hyperreflexia, lara's positive Psychiatric: normal inspection, judgement/insight normal, mood/affect normal Skin: no rash, normal inspection Medical Decision Making Diagnostic Impression: Primary Impression: Hypertensive crisis, unspecified ER Course Patient presented for headache and left side numbness. Differential diagnosis included but was not limited to cva, intracranial hemorrhage, hypertensive encephalopathy, migraine, tension headache, meningitis, temporal arteritis, subarachnoid hemorrhage, acute glaucoma, viral headache among others. Patient was placed in the examination room and evaluated by me immediately. Patient was checked periodically to assure stability and response to treatment. Patient was noted to have headache with significantly elevated blood pressure. She was given IV labetolol. Patient was given Reglan for headache. Headache improved significantly. CT of head showed no acute intracranial process. See radiology report. Patient was advised that due to neurologic findings she should be admitted to the hospital for further evaluation and monitoring. The patient was advised risk benefits alternatives of leaving AGAINST MEDICAL ADVICE and he indicated understanding and all questions are answered patient still continued want to leave and signed AGAINST MEDICAL ADVICE. Despite risks including but not limited to disability and worsening of current lifestyle. Patient indicates understanding . She is advised to return at any time if she changed her mind. Labs Test 11/13/18 17:05 White Blood Count 10.9 K/UL (4.8-10.8) Red Blood Count 4.51 M/UL (4.20-5.40) Hemoglobin 12.1 G/DL (12.0-16.0) Hematocrit 38.0 % (37.0-47.0) Mean Corpuscular Volume 84 FL (80-99) Mean Corpuscular Hemoglobin 26.8 PG (27.0-31.0) Mean Corpuscular Hemoglobin Concent 31.8 G/DL (32.0-36.0) Red Cell Distribution Width 13.2 % (11.6-14.8) Platelet Count 341 K/UL (150-450) Mean Platelet Volume 7.4 FL (6.5-10.1) Neutrophils (%) (Auto) 58.3 % (45.0-75.0) Lymphocytes (%) (Auto) 33.2 % (20.0-45.0) Monocytes (%) (Auto) 5.8 % (1.0-10.0) Eosinophils (%) (Auto) 1.6 % (0.0-3.0) Basophils (%) (Auto) 1.1 % (0.0-2.0) Prothrombin Time 10.2 SEC (9.30-11.50) Prothromb Time International Ratio 1.0 (0.9-1.1) Activated Partial Thromboplast Time 25 SEC (23-33) Urine Color Pale yellow Urine Appearance Slightly cloudy Urine pH 6 (4.5-8.0) Urine Specific [place] 1.020 (1.005-1.035) Urine Protein 1+ (NEGATIVE) Urine Glucose (UA) Negative (NEGATIVE) Urine Ketones Negative (NEGATIVE) Urine Blood Negative (NEGATIVE) Urine Nitrite Negative (NEGATIVE) Urine Bilirubin Negative (NEGATIVE) Urine Urobilinogen Normal MG/DL (0.0-1.0) Urine Leukocyte Esterase Negative (NEGATIVE) Urine RBC 0-2 /HPF (0 - 2) Urine WBC 0-2 /HPF (0 - 2) Urine Squamous Epithelial Cells Few /LPF (NONE/OCC) Urine Bacteria Few /HPF (NONE) Urine Mucus Moderate /LPF (NONE/OCC) Urine HCG, Qualitative Negative (NEGATIVE) Sodium Level 139 MMOL/L (136-145) Potassium Level 3.5 MMOL/L (3.5-5.1) Chloride Level 104 MMOL/L (98-107) Carbon Dioxide Level 25 MMOL/L (21-32) Anion Gap 10 mmol/L (5-15) Blood Urea Nitrogen 8 mg/dL (7-18) Creatinine 0.6 MG/DL (0.55-1.30) Estimat Glomerular Filtration Rate > 60 mL/min (>60) Glucose Level 98 MG/DL (74-106) Calcium Level 8.7 MG/DL (8.5-10.1) Total Bilirubin 0.4 MG/DL (0.2-1.0) Aspartate Amino Transf (AST/SGOT) 16 U/L (15-37) Alanine Aminotransferase (ALT/SGPT) 11 U/L (12-78) Alkaline Phosphatase 117 U/L (46-116) Troponin I 0.000 ng/mL (0.000-0.056) Total Protein 7.5 G/DL (6.4-8.2) Albumin 4.1 G/DL (3.4-5.0) Globulin 3.4 g/dL Albumin/Globulin Ratio 1.2 (1.0-2.7) Lipase 95 U/L (73-393) Last Vital Signs Date Time Temp Pulse Resp B/P (MAP) Pulse Ox O2 Delivery O2 Flow Rate FiO2 11/13/18 16:49 97.7 78 18 165/102 (123) 100 Room Air Status: improved Disposition: AGAINST MEDICAL ADVICE Condition: Serious Eric Laws MD Nov 13, 2018 17:14
[2018-11-13] MEDS ORDERED: Labetalol 5mg/ml 20ml vial IV SCH (17:15)
[2018-11-13 17:25] LABS: APPEARANCE,URINE SLIGHTLY CLOUDY; BILIRUBIN, URINE NEGATIVE (NEGATIVE); COLOR,URINE PALE YELLOW; GLUCOSE, URINE (UA) NEGATIVE (NEGATIVE); KETONES,URINE NEGATIVE (NEGATIVE); LEUKOCYTE ESTERASE ,URINE NEGATIVE (NEGATIVE); NITRITE,URINE NEGATIVE (NEGATIVE); PH,URINE 6 (4.5-8.0); PROTEIN,URINE 1+ (NEGATIVE); UROBILINOGEN,URINE NORMAL MG/DL (0.0-1.0)
[2018-11-13 17:26] LABS: BASOPHILS % (AUTO) 1.1 % (0.0-2.0); EOSINOPHILS % (AUTO) 1.6 % (0.0-3.0); HEMOGLOBIN 12.1 G/DL (12.0-16.0); LYMPHOCYTES % (AUTO) 33.2 % (20.0-45.0); MEAN CORPUSCULAR VOLUME 84 FL (80-99); MONOCYTES % (AUTO) 5.8 % (1.0-10.0); NEUTROPHILS % (AUTO) 58.3 % (45.0-75.0); PLATELET COUNT 341 K/UL (150-450); RED BLOOD COUNT 4.51 M/UL (4.20-5.40); RED CELL DISTRIBUTION WIDTH 13.2 % (11.6-14.8); WHITE BLOOD COUNT 10.9 K/UL (4.8-10.8)
[2018-11-13 17:36] LABS: ANION GAP 10 mmol/L (5-15); BLOOD UREA NITROGEN 8 mg/dL (7-18); CALCIUM 8.7 MG/DL (8.5-10.1); CARBON DIOXIDE 25 MMOL/L (21-32); CHLORIDE 104 MMOL/L (98-107); CREATININE 0.6 MG/DL (0.55-1.30); POTASSIUM 3.5 MMOL/L (3.5-5.1); SODIUM 139 MMOL/L (136-145)
[2018-11-13 17:40] LABS: ALANINE AMINOTRANSFERASE 11 U/L (12-78); ALBUMIN 4.1 G/DL (3.4-5.0); ALBUMIN/GLOBULIN RATIO 1.2 (1.0-2.7); ALKALINE PHOSPHATASE 117 U/L (46-116); ASPARTATE AMINO TRANSFERASE 16 U/L (15-37); BILIRUBIN,TOTAL 0.4 MG/DL (0.2-1.0)
--- NOTE | 2018-11-13 17:40 | NUR ---
ED Nurse Note: RN was instructed to hold Labetalol at this time, BP 163/107.
--- NOTE | 2018-11-13 18:16 | Diagnostic Imaging Report ---
Indication: Headache Technique: Contiguous 5 mm thick transaxial imaging of the head obtained in a Siemens Sensation [address] scanner. Soft tissue and bone windows generated. Automatic Exposure Control was utilized. Total Dose length Product (DLP): 1393.[address] Dose Index Volume (CTDIvol): 70.38 mGy Comparison: none Findings: The size and configuration of the cortical sulci, basal cisterns, and ventricles are within normal limits for age. There is no mass effect, midline shift, or edema identified. There is no evidence of acute hemorrhage or abnormal intra-axial or extra-axial fluid collections. The bones and soft tissues are unremarkable. Impression: No mass effect, edema or acute bleed. The CT scanner at [facility] is accredited by the [employer] and the scans are performed using dose optimization techniques as appropriate to a performed exam including Automatic Exposure control.
--- NOTE | 2018-11-13 18:34 | NUR ---
ED Nurse Note: BP 187/118 at this time, ERMD made aware. Awaiting for further order.
[2018-11-13] MEDS ORDERED: Metoclopramide 10mg/2ml Inj IVP ONE (18:45)
--- NOTE | 2018-11-13 19:04 | NUR ---
ED Nurse Note: Report given to PAVEL Aparicio.
--- NOTE | 2018-11-13 19:11 | NUR ---
ED Nurse Note: Received report from Renetta ZHAO. Patient alert and oriented, verbally responsive. No SOB. Breathing even and unlabored. BP 133/71. Will continue plan of care.
[2018-11-13] MEDS ORDERED: HydrALAZINE 25mg tab ORAL PRN (19:45)
[2018-11-13] MEDS ORDERED: traMADol 50mg tab ORAL PRN (19:45)
--- NOTE | 2018-11-13 20:27 | NUR ---
AMA: Patient AMA and signed the form. As per patient, she wants to go home instead of being admitted because no one will take care of her child and stated that she feels better. MD notied and talked to the patient. Explained risk and benefits. Removed ID band and IV line without complication. Called Antonette from [place] to inform that patient AMA. Patient took all belongings.
[2018-11-13] MEDS ORDERED: Metoprolol Tartrate 50mg tab ORAL SCH (21:00)
[2018-11-13] MEDS ORDERED: Enoxaparin 40mg Inj SUBQ SCH (21:00)
[2018-11-13] MEDS ORDERED: NovoLOG Insulin Flexpen SUBQ SCH (21:30)
[2018-11-14] MEDS ORDERED: metFORMIN 500mg tab ORAL SCH (06:30)
[2018-11-14] MEDS ORDERED: Aspirin Baby 81mg ORAL SCH (09:00)
--- NOTE | 2018-11-14 18:11 | Cardiology Report ---
APPROVED REPORT EKG Measurement Heart [id number] Normal sinus rhythm Normal ECG
== END 2018-11-13 20:49 | disposition left against medical advice (07) ==
LOC: EMR 17:12 → 3E 18:32 → UNDOADMIN 18:32 → EDBEDREQ 20:03 → CANBEDREQ 20:42 → EMR 20:49
DX: I16.9 Hypertensive crisis, unspecified (principal); Z87.442 Personal history of urinary calculi
CPT/HCPCS: 36415; 70450; 80053; 81003; 81025; 83690; 84484; 85025; 85610; 85730; 93005; 96365; 96375; J1815; J2765; Z7502; 99284

== ENCOUNTER 2018-11-18 12:21 | Emergency (ER) | payer MEDICAID ==
[~2018-11-18] VITALS: Ht 154.9 cm; Wt 72.6 kg
[2018-11-18 12:42] VITALS: BP 185/107
--- NOTE | 2018-11-18 12:48 | NUR ---
ED Nurse Note: AMBULATED INTO ED DUE TO LEFT ARM PAIN X 7DAYS. PT REPORTS BEING SEEN BY [facility] ON 11/13/18 WITH THE SAME COMPLAINT. PT IS ABLE TO RAISE BUE AND NO DROOP NOTED. HX OF HTN, PRE-DM AND ANXIETY. PT STATES THAT SHE FORGOT TO TAKE THE BP MED TODAY. DENIES CP OR SOB
[2018-11-18] MEDS ORDERED: Lisinopril 10mg tab ORAL ONE (13:00)
--- NOTE | 2018-11-18 13:13 | Diagnostic Imaging Report ---
EXAM: XR Left Forearm, 2 Views CLINICAL HISTORY: PAIN TECHNIQUE: Frontal and lateral views of the left forearm. COMPARISON: None FINDINGS: Bones joints: No displaced fracture or dislocation identified. Joint space is maintained. No bony lesion. No elbow joint effusion. Soft tissues: Normal. IMPRESSION: No displaced fracture or dislocation identified.
[2018-11-18 14:05] VITALS: BP 164/112
--- NOTE | 2018-11-18 14:06 | NUR ---
ED Nurse Note: notified PA regarding pt's new BP. PA states that she will order new BP med. will follow up
[2018-11-18] MEDS ORDERED: Labetalol 5mg/ml 20ml vial IV ONE (14:15)
--- NOTE | 2018-11-18 14:31 | Emergency Room Report ---
History of Present Illness General Chief Complaint: Pain Source: Patient (Dayanara Swanson) Present Illness HPI 30-year-old female with history of hypertension and anxiety here complaining of left forearm pain for several times. Patient was at [facility] 4 days ago for similar complaint. Patient was worked up for hypertensive urgency. All presumed cardiac and CVA were ruled out. Patient denies any fall or injury. Complains of occasional twitching of the left arm and tingling and numbness. Patient has followed up with her primary care provider in this regard and been told to return to the emergency room if the symptoms return again. Patient denies chest pain, shortness of breath, palpitation, headache and dizziness. Denies blurred vision nausea vomiting. Patient reports that she has history of anxiety and her primary care physician has given her anxiety medication however patient does not take them. Denies suicidal homicidal ideation. Reports that she sleeps good and has good appetite. 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 (Dayanara Swanson) Allergies: Coded Allergies: No Known Allergies (Unverified , 02/25/12) Patient History Past Medical History: see triage record Past Surgical History: unable to obtain Pertinent Family History: none Last Menstrual Period: 11/02/2018 Now: No : 3 Para: 3 Immunizations: UTD Reviewed Nursing Documentation: PMH: Agreed; PSxH: Agreed (Dayanara Swanson) Nursing Documentation-PMH Hx Cardiac Problems: No Hx Hypertension: Yes Hx Pacemaker: No Hx Asthma: No Hx COPD: No Hx Diabetes: Yes - hx of kidney stone Hx Cancer: No Hx Gastrointestinal Problems: No Hx Dialysis: No Hx Neurological Problems: No - meningitis Hx Cerebrovascular Accident: No Hx Seizures: No (Dayanara Swanson) Review of Systems All Other Systems: negative except mentioned in HPI (Dayanara Swanson) Physical Exam Vital Signs Date Time Temp Pulse Resp B/P (MAP) Pulse Ox O2 Delivery O2 Flow Rate FiO2 11/18/18 12:35 98.6 87 18 185/107 (133) 98 Room Air Sp02 EP Interpretation: reviewed, normal General Appearance: no apparent distress, alert, GCS 15, non-toxic Head: normocephalic, atraumatic Eyes: bilateral eye normal inspection, bilateral eye PERRL ENT: hearing grossly normal, normal pharynx, no angioedema, normal voice Neck: full range of motion, supple/symm/no masses Respiratory: chest non-tender, lungs clear, normal breath sounds, no rhonchi, no wheezing, speaking full sentences Cardiovascular #1: regular rate, rhythm, no edema, no murmur Gastrointestinal: normal bowel sounds, non tender, soft, non-distended, no guarding, no rebound Genitourinary: normal inspection, no CVA tenderness Musculoskeletal: back normal, gait/station normal, normal range of motion, non- tender, no calf tenderness Neurologic: alert, oriented x3, responsive, motor strength/tone normal, sensory intact, speech normal Psychiatric: judgement/insight normal, memory normal, mood/affect normal, no suicidal/homicidal ideation Skin: no rash Lymphatic: no adenopathy (Dayanara Swanson) Medical Decision Making PA Attestation All diagnoses and treatment plans were reviewed and discussed with my supervising physician Dr. Steward (Dayanara Swanson) Diagnostic Impression: Primary Impression: Anxiety Additional Impressions: HTN (hypertension) Strain of upper arm ER Course 30-year-old female with history of hypertension and anxiety here complaining of left forearm pain for several times. Patient was at [facility] 4 days ago for similar complaint. Patient was worked up for hypertensive urgency. All presumed cardiac and CVA were ruled out. Patient denies any fall or injury. Complains of occasional twitching of the left arm and tingling and numbness. Patient has followed up with her primary care provider in this regard and been told to return to the emergency room if the symptoms return again. Patient denies chest pain, shortness of breath, palpitation, headache and dizziness. Denies blurred vision nausea vomiting. Patient reports that she has history of anxiety and her primary care physician has given her anxiety medication however patient does not take them. Denies suicidal homicidal ideation. Reports that she sleeps good and has good appetite. 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 Ddx considered but are not limited to: generalized anxiety disorder, panic attack, depression with psychotic feature, bipolar disorder, drug overdose , hypertensive urgency versus emergency Vital signs: are WNL, pt. is afebrile H&PE are most consistent with: Arm pain is secondary to psychosomatic disorder as well as anxiety also advised patient to follow-up with the hypertension management ORDERS: X-ray left forearm, tox screen, Robaxin, ibuprofen ED INTERVENTIONS: Labetalol, lisinopril DISCHARGE: At this time pt. is stable for d/c to home. Will provide printed patient care instructions, and any necessary prescriptions. Care plan and follow up instructions have been discussed with the patient prior to discharge. Patient does not remember the blood pressure medication however reports that she has not taken it this morning and her lisinopril as she mentions it sounded familiar and she believes it is what she takes 40 mg of lisinopril. Advised patient that she has a lot of anxiety and is the cause of her symptoms she was just worked up for hypertensive urgency versus emergency and there is no need to do work-up again there has been no change in her presentation in the past few days. Advised patient to get help from psychotherapist as well as physical therapy patient is stable at time of discharge even though blood pressure was still elevated but patient was asymptomatic (Dayanara Swanson) Other X-Ray Diagnostic Results Other X-Ray Diagnostic Results : X-Ray ordered: Left forearm # of Views/Limited Vs Complete: 3 View Indication: Pain EP Interpretation: Yes PA Xray: Interpretation reviewed, by supervising MD, and agrees with findings. Interpretation: no dislocation, no soft tissue swelling, no fractures Impression: No acute disease Electronically Signed by: Dayanara Solitario PA-C (Dayanara Swanson) Other X-Ray Diagnostic Results : Electronically Signed by: Acacia Cyr documentation of Xray reviewed by me and is accurate, Charly Steward MD (Charly Steward MD) Last Vital Signs Date Time Temp Pulse Resp B/P (MAP) Pulse Ox O2 Delivery O2 Flow Rate FiO2 11/18/18 14:20 72 164/112 11/18/18 14:05 18 98 Room Air 11/18/18 12:42 98.6 (Dayanara Swanson) Disposition: HOME, SELF-CARE Condition: Stable Scripts Methocarbamol* (ROBAXIN-500*) 500 Mg Tablet 500 MG ORAL TID PRN for For Pain, #15 TAB 0 Refills Prov: Dayanara Swanson 11/18/18 Ibuprofen* (MOTRIN*) 600 Mg Tablet 600 MG ORAL FOUR TIMES A DAY, #30 TAB 0 Refills Prov: Dayanara Swanson 11/18/18 Referrals: NOT CHOSEN IPA/,REFERRING (PCP) Patient Instructions: Generalized Anxiety Disorder, Hypertension, Muscle Cramps and Spasms Additional Instructions: Follow-up with your primary care provider in regards to therapy for your anxiety as your pain is secondary to the anxiety blood pressure fluctuates due to your anxiety. At this time we have cleared you for hypertensive emergency upon your latest visit to the emergency room and no signs of cardiac or cerebral damage seen. Physical therapy referral and treatment from psychotherapist needed also have a better management for blood pressure control. Dayanara Swanson Nov 18, 2018 14:31 Charly Steward MD Nov 20, 2018 00:47
[2018-11-18] MEDS ORDERED: ROBAXIN-500MG ORAL (14:35)
[2018-11-18] MEDS ORDERED: IBUPROFEN600 MG ORAL (14:35)
[2018-11-18 15:03] VITALS: BP 164/112
--- NOTE | 2018-11-18 15:04 | NUR ---
ED Nurse Note: Per DEVI Eugene, pt can be dischare with 162/113 and HR of 71, asymptomatic. Pt cleared by health care Provider for discharge. DC instructions/prescription was given and explained to pt and verbalized understanding of teachings. All medical deviecs such as ID band and IV removed. Pt is AAO x4, ambulatory and left with all personal belongings.
== END 2018-11-18 15:05 | disposition home or self-care (01) ==
LOC: EMR 14:19
DX: S46.812A Strain of other muscles, fascia and tendons at shoulder and upper arm level, left arm, initial encounter (principal); F41.9 Anxiety disorder, unspecified; I10 Essential (primary) hypertension; E11.9 Type 2 diabetes mellitus without complications; Z87.442 Personal history of urinary calculi; Z86.61 Personal history of infections of the central nervous system; X58.XXXA Exposure to other specified factors, initial encounter; Y92.9 Unspecified place or not applicable
CPT/HCPCS: 73090; 96374; Z7502; 99284

== ENCOUNTER 2019-05-12 11:11 | Emergency (ER) | payer SELFPAY ==
[~2019-05-12] VITALS: Ht 154.9 cm; Wt 70.3 kg
[~2019-05-12 11:11] MED LIST changes: +ROBAXIN-500MG ORAL
[2019-05-12 11:32] VITALS: BP 172/91
--- NOTE | 2019-05-12 12:14 | Emergency Room Report ---
History of Present Illness General Chief Complaint: Dyspnea/Respdistress Source: Patient Present Illness HPI Patient is a present after increased difficulty with breathing. Prior history of hypertension. She had not been vomiting. Reports having increased bilateral lower extremity discomfort as well as weakness. Had prior history of hypertension and does not take any medications other than lisinoprilShe reports having previous low back pain. Previous history of severe hypertension. Denies any vomiting or diarrhea. COVID-19 risk:Travel to affect: No Has patient experienced bartlett: No Allergies: Coded Allergies: No Known Allergies (Unverified , 02/25/12) Patient History Past Medical History: see triage record Last Menstrual Period: 05/03/19 Now: No Reviewed Nursing Documentation: PMH: Agreed; PSxH: Agreed Nursing Documentation-PMH Past Medical History: No History, Except For Hx Cardiac Problems: No Hx Hypertension: Yes Hx Pacemaker: No Hx Asthma: No Hx COPD: No Hx Diabetes: Yes Hx Cancer: No Hx Gastrointestinal Problems: No Hx Dialysis: No Hx Neurological Problems: No - meningitis Hx Cerebrovascular Accident: No Hx Seizures: No Review of Systems All Other Systems: negative except mentioned in HPI Physical Exam Vital Signs Date Time Temp Pulse Resp B/P (MAP) Pulse Ox O2 Delivery O2 Flow Rate FiO2 05/12/19 11:21 98.1 97 19 181/90 (120) 100 Room Air 05/12/19 11:32 99 Sp02 EP Interpretation: reviewed, normal General Appearance: normal inspection, well appearing, no apparent distress, alert Head: atraumatic ENT: normal ENT inspection, hearing grossly normal, normal voice Neck: normal inspection, full range of motion, supple, no bony tend Respiratory: normal inspection, lungs clear, normal breath sounds, no respiratory distress, no retraction, no wheezing Cardiovascular #1: regular rate, rhythm, no edema Gastrointestinal: normal inspection, normal bowel sounds, non tender, soft, no guarding, no hernia Genitourinary: no CVA tenderness Musculoskeletal: normal inspection, back normal, normal range of motion Neurologic: alert, responsive, speech normal, normal inspection Psychiatric: normal inspection, judgement/insight normal, mood/affect normal Medical Decision Making Diagnostic Impression: Primary Impression: Nonspecific chest pain ER Course Patient presented for chest pain and nonproductive cough. Differential diagnosis include was not limited to pneumonia, Covid 19, asthma exacerbation, bronchitis among others. Because of complexity of patient's case laboratory tests and imaging studies were ordered. Patient's laboratory testing was unremarkable. Chest x-ray showed no evidence of acute infiltrate. Patient was given breathing treatment with improvement. As she was given medications for discomfort. Patient was advised to self isolate for the next 14 days. Advised to return if worse. The patient is advised to follow up with primary care doctors. Patient is advised to return if any worsening condition or if any changes in status that are concerning. This report is dictated with [employer] dinkey motor operator software which may occasionally lead to discrepancies related to use of this software. Last Vital Signs Date Time Temp Pulse Resp B/P (MAP) Pulse Ox O2 Delivery O2 Flow Rate FiO2 05/12/19 11:32 98.1 76 20 172/91 100 Room Air 05/12/19 11:32 99 Status: improved Disposition: HOME, SELF-CARE Condition: Stable Scripts Famotidine* (Pepcid 20mg tablet*) 20 Mg Tablet 20 MG ORAL DAILY, #30 TAB 0 Refills Prov: Eric Laws MD 05/12/19 Albuterol Sulfate* (ALBUTEROL SULFATE MDI*) 8.5 Gm Hfa.aer.ad 2 PUFF INH Q6H, #1 EA 0 Refills Prov: Eric Laws MD 05/12/19 Referrals: NON PHYSICIAN (PCP) Eric Laws MD May 12, 2019 12:14
[2019-05-12] MEDS ORDERED: Albuterol/Ipratropium 3ml neb HHN ONE (12:30)
[2019-05-12 13:19] LABS: ANION GAP 11 mmol/L (5-15); BLOOD UREA NITROGEN 12 mg/dL (7-18); CALCIUM 8.9 MG/DL (8.5-10.1); CARBON DIOXIDE 25 MMOL/L (21-32); CHLORIDE 106 MMOL/L (98-107); CREATININE 0.8 MG/DL (0.55-1.30); POTASSIUM 3.6 MMOL/L (3.5-5.1); SODIUM 142 MMOL/L (136-145)
[2019-05-12 13:20] LABS: BASOPHILS % (AUTO) 1.3 % (0.0-2.0); EOSINOPHILS % (AUTO) 2.9 % (0.0-3.0); HEMATOCRIT 38.9 % (37.0-47.0); HEMOGLOBIN 12.9 G/DL (12.0-16.0); LYMPHOCYTES % (AUTO) 30.5 % (20.0-45.0); MEAN CORPUSCULAR VOLUME 80 FL (80-99); MONOCYTES % (AUTO) 4.9 % (1.0-10.0); NEUTROPHILS % (AUTO) 60.4 % (45.0-75.0); PLATELET COUNT 376 K/UL (150-450); RED BLOOD COUNT 4.86 M/UL (4.20-5.40); RED CELL DISTRIBUTION WIDTH 13.3 % (11.6-14.8); WHITE BLOOD COUNT 9.3 K/UL (4.8-10.8)
[2019-05-12 13:30] LABS: ALANINE AMINOTRANSFERASE 19 U/L (12-78); ALBUMIN 3.9 G/DL (3.4-5.0); ALBUMIN/GLOBULIN RATIO 1.1 (1.0-2.7); ALKALINE PHOSPHATASE 124 U/L (46-116); ASPARTATE AMINO TRANSFERASE 15 U/L (15-37); BILIRUBIN,TOTAL 0.3 MG/DL (0.2-1.0)
[2019-05-12 13:32] LABS: APPEARANCE,URINE SLIGHTLY CLOUDY; BILIRUBIN, URINE NEGATIVE (NEGATIVE); COLOR,URINE PALE YELLOW; GLUCOSE, URINE (UA) NEGATIVE (NEGATIVE); KETONES,URINE NEGATIVE (NEGATIVE); LEUKOCYTE ESTERASE ,URINE 2+ (NEGATIVE); NITRITE,URINE NEGATIVE (NEGATIVE); PH,URINE 8 (4.5-8.0); PROTEIN,URINE NEGATIVE (NEGATIVE); UROBILINOGEN,URINE NORMAL MG/DL (0.0-1.0)
[2019-05-12] MEDS ORDERED: ALBUTEROL SULF8.5 GM INH (14:18)
[2019-05-12] MEDS ORDERED: FAMOTIDINE20 MG ORAL (14:18)
[2019-05-12 15:20] VITALS: BP 168/90
== END 2019-05-12 15:20 | disposition home or self-care (01) ==
LOC: EMR 11:20
DX: R07.9 Chest pain, unspecified (principal); R05 Cough; I10 Essential (primary) hypertension; Z86.61 Personal history of infections of the central nervous system; E11.9 Type 2 diabetes mellitus without complications
CPT/HCPCS: 36415; 80053; 81001; 81025; 83880; 84484; 85025; 93005; 99284; J7620